=== PATIENT | male | born 1995 | race Caucasian/White ===

== ENCOUNTER 2018-03-11 18:53 | Emergency (ER) | payer OTHER | END 2018-03-11 23:15 | disposition home or self-care (01) | LOC: M ED 23:15 | DX: S06.0X0A Concussion without loss of consciousness, initial encounter (principal); V86.14XA Passenger of military vehicle injured in traffic accident, initial encounter; Y92.410 Unspecified street and highway as the place of occurrence of the external cause; Z87.828 Personal history of other (healed) physical injury and trauma | CPT/HCPCS: 70450 ==